=== PATIENT | male | born 1985 | race Caucasian/White ===

== ENCOUNTER 2019-06-18 16:48 | Emergency (ER) | payer MEDICAID ==
[~2019-06-18] VITALS: Ht 165.1 cm; Wt 81.8 kg
[2019-06-18 17:00] VITALS: BP 124/80
[2019-06-18] MEDS ORDERED: proCHLORperazine 10 MG/2 ml inj IM ONE (18:20)
[2019-06-18] MEDS ORDERED: diphenhydrAMINE 50 mg/ml inj IM ONE (18:20)
[2019-06-18] MEDS ORDERED: ondansetron 4mg rapidly disintigrating tab PO ONE (19:20)
[2019-06-18] MEDS ORDERED: ketorolac tromethamine 15mg/ml inj. IM ONE (19:20)
== END 2019-06-18 19:56 | disposition home or self-care (01) ==
LOC: ER 16:49
DX: F07.81 Postconcussional syndrome (principal)
CPT/HCPCS: 96372; 99283; J0780; J1200; J1885

== ENCOUNTER 2019-07-10 20:19 | Emergency (ER) | payer MEDICAID ==
[~2019-07-10] VITALS: Ht 165.1 cm; Wt 73.0 kg
--- NOTE | 2019-07-10 20:34 | NUR ---
1ST CALL PT NOT IN LOBBY
--- NOTE | 2019-07-10 20:40 | NUR ---
2ND CALL PT NOT IN LOBBY
[2019-07-10 20:59] VITALS: BP 124/77
== END 2019-07-10 22:02 | disposition home or self-care (01) ==
LOC: ER 20:19
DX: S50.01XA Contusion of right elbow, initial encounter (principal); W18.30XA Fall on same level, unspecified, initial encounter; Y93.89 Activity, other specified; Y92.89 Other specified places as the place of occurrence of the external cause; Y99.9 Unspecified external cause status
CPT/HCPCS: 73080; 99283

== ENCOUNTER 2019-10-22 00:56 | Emergency (ER) | payer MEDICAID ==
[~2019-10-22] VITALS: Ht 165.1 cm; Wt 78.1 kg
[2019-10-22 00:57] VITALS: BP 126/87
[2019-10-22] MEDS ORDERED: ACET-812 PO (01:15)
[2019-10-22] MEDS ORDERED: AMOX500C2 PO (01:15)
== END 2019-10-22 01:31 | disposition home or self-care (01) ==
LOC: ER 00:57
DX: K08.89 Other specified disorders of teeth and supporting structures (principal)
CPT/HCPCS: 99283

== ENCOUNTER 2019-12-10 13:39 | Emergency (ER) | payer MEDICAID ==
[~2019-12-10] VITALS: Ht 165.1 cm; Wt 81.3 kg
[2019-12-10 13:54] VITALS: BP 127/84
== END 2019-12-10 15:29 | disposition home or self-care (01) ==
LOC: ER 13:39
DX: S60.511A Abrasion of right hand, initial encounter (principal); W31.89XA Contact with other specified machinery, initial encounter; Y93.89 Activity, other specified; Y92.89 Other specified places as the place of occurrence of the external cause; Y99.8 Other external cause status
CPT/HCPCS: 73130; 99283

== ENCOUNTER 2020-02-21 19:04 | Emergency (ER) | payer MEDICAID ==
[~2020-02-21] VITALS: Ht 165.1 cm; Wt 80.9 kg
[2020-02-21 19:09] VITALS: BP 127/87
[2020-02-21] MEDS ORDERED: PEG15DRO5 LEFTEYE (19:27)
[2020-02-21] MEDS ORDERED: IBUP-1984 PO (19:27)
[2020-02-21] MEDS ORDERED: PROP1DRO7 OP (23:03)
[2020-02-21] MEDS ORDERED: ACET-1025 PO (23:03)
== END 2020-02-21 19:59 | disposition home or self-care (01) ==
LOC: ER 19:05
DX: H92.03 Otalgia, bilateral (principal); H50.812 Duane's syndrome, left eye; R51 Headache; Z79.899 Other long term (current) drug therapy
CPT/HCPCS: 99282

== ENCOUNTER 2020-03-23 00:15 | Emergency (ER) | payer MEDICAID ==
[~2020-03-23] VITALS: Ht 165.1 cm; Wt 81.2 kg
[~2020-03-23 00:15] MED LIST: PEG15DRO5 LEFTEYE; PROP1DRO7 OP
[2020-03-23 00:21] VITALS: BP 140/80
[2020-03-23] MEDS ORDERED: naproxen 500mg tablet PO ONE (01:30)
[2020-03-23] MEDS ORDERED: NAPR-56 PO (01:32)
== END 2020-03-23 01:51 | disposition home or self-care (01) ==
LOC: ER 00:16
DX: S63.502A Unspecified sprain of left wrist, initial encounter (principal); M25.532 Pain in left wrist; Z79.899 Other long term (current) drug therapy; Y93.89 Activity, other specified; Y92.89 Other specified places as the place of occurrence of the external cause; Y99.8 Other external cause status
CPT/HCPCS: 73110; 99283